=== PATIENT | male | born 1960 | race Caucasian/White ===

== ENCOUNTER 2018-02-05 12:44 | Observation (INO) | payer OTHER ==
--- NOTE | 2018-02-05 13:37 | CPEKG ---
Heart Rate: 68 RR Interval: 882 P-R Interval: 148 QRSD Interval: 98 QT Interval: 408 QTC Interval: 434 P [place]: 18 QRS [place]: 57 T Wave [place]: 53 EKG Severity - BORDERLINE ECG - EKG Impression: SINUS RHYTHM EKG Impression: BORDERLINE ST ELEVATION, ANTERIOR LEADS Electronically Signed By: Toña Montez 05-Feb-2018 19:58:42
[2018-02-05] MEDS ORDERED: NS 500 ML IV ONE (13:38)
[2018-02-05] MEDS ORDERED: ASPIRIN 81 MG CHEWABLE TAB PO ONE (13:38)
[2018-02-05 13:52] LABS: PLATELET COUNT 266 10^3/uL (150-400)
[2018-02-05 14:02] LABS: INR 0.92 (0.83-1.16); PROTIME(PATIENT) 12.6 SEC (12.0-15.0)
[2018-02-05 14:15] LABS: CREATINE KINASE 116 IU/L (0-224)
--- NOTE | 2018-02-05 14:33 | EDPHY ---
H & P Time Seen by Provider: 02/05/18 13:35 HPI/ROS: HPI Lightheaded, chest tightness. 57-year-old male by private vehicle with his . This patient reports that he was mountain biking this morning for about an hour and a half. While doing so he felt fine. He was driving home when he had an episode of what he describes as tightness left side and mid substernal in his chest. He describes this as a squeezing sensation with associated lightheadedness. He reports that he felt he was going to black out but did not. He was able to drive home. When he got home he discussed this with his and they decided to come to the emergency department. At this time of evaluation he denies any symptoms. No chest pain. No shortness of breath. No lightheadedness. He denies any other complaints. He states that he has had a sensation of palpitations associated with exercise and immediately after exercise in the past. He has been seen by a incident response lead for years ago and this was thought to perhaps be atrial fibrillation but was never diagnosed officially. He is not on any prescription medications other than Paxil. ROS: Constitutional: No fever, no chills. As above. Eyes: No discharge. No changes in vision. ENT: No sore throat. No nasal congestion or rhinorrhea. Respiratory: No cough. No shortness of breath. Cardiac: As above, no palpitations. Gastrointestinal: No abdominal pain, no vomiting, no diarrhea. Genitourinary: No hematuria. No dysuria or increased frequency with urination. Musculoskeletal: No back pain. No neck pain. No myalgias or arthralgias. Skin: No rashes. Neurological: No headache. No focal weakness or altered sensation. Past medical history: Depression. Social history: Nonsmoker. Here with his . No alcohol. Physical Exam: General Appearance: Alert, no distress. This patient is responding to questions appropriately and in full sentences. This patient appears well- hydrated and well-nourished. Eyes: Pupils equal and round no pallor or injection. No lid edema, erythema or injection. Respiratory: There are no retractions, lungs are clear to auscultation with good air movement bilaterally. Cardiovascular: Regular rate and rhythm. No murmur. Gastrointestinal: Abdomen is soft and nontender, no masses, bowel sounds normal. No focal tenderness at McBurney's point. No Sims sign. Neurological: Motor sensory function is grossly intact. Cranial nerves are normal. Gait is normal. Skin: Warm and dry, no rashes. Musculoskeletal: Neck is supple and nontender. Extremities are symmetrical. All joints range without pain or impingement. Psychiatric: No agitation. No depression. Database: EKG: EKG time is 1:35 p.m.; EKG shows a narrow complex normal sinus rhythm with a ventricular rate of 68. The CO, QRS, QT intervals are within normal limits. Tall peaked T-waves noted in V2 and V3. Borderline J-point elevation in V2 and V3. No reciprocal changes. Otherwise there are no ST-T wave changes indicative of ischemic or injury pattern. No evidence of right heart strain. Interpreted by me. Imaging: Chest x-ray AP portable: The cardiac mediastinal silhouette is normal. No evidence of infiltrate or pneumothorax. No acute cardiopulmonary disease process. Interpreted by me. Procedures: Emergency department course: IV was placed. He was placed on a manager cardiac. He was given 324 mg of chewed aspirin. EKG obtained and reviewed by myself. 2:50 p.m., patient re-evaluated. Resting comfortably at this time. Results of blood work discussed with him. Plan for admission reviewed. He endorses. 3:00 p.m., spoke with on-call hospitalist. Case discussed in detail. Dr. Kamilah Palmer accepts this patient for admission to telemetry observation. Patient admitted in stable condition. Differential Diagnosis: The differential diagnosis on this patient includes but is not limited to arrhythmia, acute coronary syndrome. Pulmonary embolism, aortic dissection, myocarditis, pericarditis unlikely. This represents a partial list of diagnoses considered. These considerations are based on history, physical exam , past history, reassessment and diagnostic testing. Smoking Status: Never smoked Constitutional: Initial Vital Signs Temperature (C) 36.9 C 02/05/18 12:53 Heart Rate 68 02/05/18 12:53 Respiratory Rate 16 02/05/18 12:53 Blood Pressure 108/66 02/05/18 12:53 O2 Sat (%) 97 02/05/18 12:53 O2 Delivery Mode Room Air Allergies/Adverse Reactions: No Known Allergies Allergy (Unverified 02/05/18 12:52) Home Medications: Medication Instructions Recorded Loratadine 02/05/18 Mucinex 02/05/18 Nasacort 02/05/18 Paxil 02/05/18 Medical Decision Making - Diagnostics Imaging Results: Imaging Impressions Chest X-Ray 02/05/18 13:38 Impression: No significant radiographic abnormality. Specifically, a source for chest pain is not identified. - Data Points Laboratory Results: Laboratory Results 02/05/18 13:41 02/05/18 13:41 02/05/18 02/05/18 02/05/18 13:41 13:41 13:41 WBC 14.44 10^3/uL H 10^3/uL (3.80-9.50) RBC 5.18 10^6/uL 10^6/uL (4.40-6.38) Hgb 16.0 g/dL g/dL (13.7-17.5) Hct 46.3 % % (40.0-51.0) MCV 89.4 fL fL (81.5-99.8) MCH 30.9 pg pg (27.9-34.1) MCHC 34.6 g/dL g/dL (32.4-36.7) RDW 13.1 % % (11.5-15.2) Plt Count 266 10^3/uL 10^3/uL (150-400) MPV 9.2 fL fL (8.7-11.7) Neut % (Auto) 81.2 % H % (39.3-74.2) Lymph % (Auto) 11.4 % L % (15.0-45.0) [place] % (Auto) 5.5 % % (4.5-13.0) Eos % (Auto) 0.9 % % (0.6-7.6) Baso % (Auto) 0.6 % % (0.3-1.7) Nucleat RBC Rel Count 0.0 % % (0.0-0.2) Absolute Neuts (auto) 11.72 10^3/uL H 10^3/uL (1.70-6.50) Absolute Lymphs (auto) 1.65 10^3/uL 10^3/uL (1.00-3.00) Absolute Monos (auto) 0.80 10^3/uL 10^3/uL (0.30-0.80) Absolute Eos (auto) 0.13 10^3/uL 10^3/uL (0.03-0.40) Absolute Basos (auto) 0.08 10^3/uL 10^3/uL (0.02-0.10) Absolute Nucleated RBC 0.00 10^3/uL 10^3/uL (0-0.01) Immature Gran % 0.4 % % (0.0-1.1) Immature Gran # 0.06 10^3/uL 10^3/uL (0.00-0.10) PT 12.6 SEC SEC (12.0-15.0) INR 0.92 (0.83-1.16) APTT 25.1 SEC SEC (23.0-38.0) D-Dimer 0.60 ug/mLFEU H ug/mLFEU (0.00-0.50) Sodium 141 mEq/L mEq/L (135-145) Potassium 4.4 mEq/L mEq/L (3.3-5.0) Chloride 106 mEq/L mEq/L (97-110) Carbon Dioxide 23 mEq/l mEq/l (22-31) Anion Gap 12 mEq/L mEq/L (8-16) BUN 19 mg/dL mg/dL (7-23) Creatinine 1.0 mg/dL mg/dL (0.7-1.3) Estimated GFR > 60 Glucose 106 mg/dL H mg/dL (70-100) Calcium 9.1 mg/dL mg/dL (8.5-10.4) Creatine Kinase 116 IU/L IU/L (0-224) CK-MB (CK-2) Fraction 1.27 ng/mL ng/mL (0.00-3.19) Troponin I < 0.012 ng/mL ng/mL (0.000-0.034) Medications Given: Discontinued Medications Aspirin (Aspirin) 324 mg PO EDNOW ONE Stop: 02/05/18 13:39 Last Admin: 02/05/18 14:01 Dose: 324 mg Sodium Chloride (Ns) 500 mls @ 1,000 mls/hr IV EDNOW ONE PRN Reason: Protocol Stop: 02/05/18 14:07 Last Admin: 02/05/18 14:01 Dose: 500 mls Departure - Departure Disposition: [facility] ([place], [place])s Inpatient Acute Clinical Impression: Near syncope, Chest discomfort Referrals: Garfein,Chris, DO [Primary Care Provider] - As per Instructions
[2018-02-05] MEDS ORDERED: ACETAMINOPHEN 325 MG TAB PO PRN (15:09)
[2018-02-05] MEDS ORDERED: ONDANSETRON DISINTEGRATING 4 MG TAB PO PRN (15:09)
[2018-02-05] MEDS ORDERED: ONDANSETRON 4 MG/2 ML VIAL IVP PRN (15:09)
[2018-02-05] MEDS ORDERED: D50W 25 GM/50 ML SYR IVP ONE (15:40)
--- NOTE | 2018-02-05 16:28 | PDGENHP ---
History and Physical - Chief Complaint chest tightness - History of Present Illness 57 yo active male with h/o allergies and anxiety presents to ED with an episode of chest tightness, which is now resolved. He did a mountain bike ride this morning near [facility] and had no chest pain or unexpected dyspnea during the ride. On his way home, he felt lightheaded. He drank some water. He then noticed some focal chest tightness in the left side of his chest without radiation. There was no associated nausea, diaphoresis or shortness of breath. He denies URI symptoms. No fevers or chills. No abdominal symptoms or changes in his bowel or bladder habits. He is a lifetime non-smoker. No h/o hypertension or hyperlipidemia. No family history of CAD. Overall, no cardiac risk factors. In the ED, he had peaked T waves on his EKG, but no acute ischemic changes. His initial troponin is negative. He is currently chest pain free and has been without symptoms since arrival to the ED. He is admitted to the PCU for further cardiac evaluation. History Information - Allergies/Home Medication List Allergies/Adverse Reactions: No Known Allergies Allergy (Verified 02/05/18 15:39) Home Medications: Loratadine [Claritin] 10 mg PO DAILY 02/05/18 [Last Taken 02/05/18] PARoxetine HCL [Paxil 20mg (*)] 20 mg PO DAILY 02/05/18 [Last Taken 02/05/18] Triamcinolone Acetonide [Nasacort] 10.8 ml NS DAILY PRN 02/05/18 [Last Taken Unknown] guaiFENesin [Mucinex 600 MG (*)] 600 mg PO BID 02/05/18 [Last Taken 02/05/18] I have personally reviewed and updated: family history, medical history, social history, surgical history - Past Medical History Additional medical history: allergies. 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 Review of Systems Review of Systems: ROS: 10pt was reviewed & negative except for what was stated in HPI & below Physical Exam Physical Exam: Temp Pulse Resp BP Pulse Ox 36.9 C 54 L 16 122/72 H 95 02/05/18 12:53 02/05/18 16:11 02/05/18 16:11 02/05/18 16:11 02/05/18 16:11 Constitutional: no apparent distress Eyes: PERRL Ears, Nose, Mouth, Throat: moist mucous membranes Cardiovascular: regular rate and rhythym, no murmur, rub, or gallop Respiratory: no respiratory distress, clear to auscultation Gastrointestinal: normoactive bowel sounds, soft, non-tender abdomen Skin: warm Musculoskeletal: full muscle strength Neurologic: AAOx3 Psychiatric: interacting appropriately Lab Data & Imaging Review 02/05/18 13:41 02/05/18 13:41 WBC 14.44 10^3/uL (3.80-9.50) H 02/05/18 13:41 RBC 5.18 10^6/uL (4.40-6.38) 02/05/18 13:41 Hgb 16.0 g/dL (13.7-17.5) 02/05/18 13:41 Hct 46.3 % (40.0-51.0) 02/05/18 13:41 MCV 89.4 fL (81.5-99.8) 02/05/18 13:41 MCH 30.9 pg (27.9-34.1) 02/05/18 13:41 MCHC 34.6 g/dL (32.4-36.7) 02/05/18 13:41 RDW 13.1 % (11.5-15.2) 02/05/18 13:41 Plt Count 266 10^3/uL (150-400) 02/05/18 13:41 MPV 9.2 fL (8.7-11.7) 02/05/18 13:41 Neut % (Auto) 81.2 % (39.3-74.2) H 02/05/18 13:41 Lymph % (Auto) 11.4 % (15.0-45.0) L 02/05/18 13:41 [place] % (Auto) 5.5 % (4.5-13.0) 02/05/18 13:41 Eos % (Auto) 0.9 % (0.6-7.6) 02/05/18 13:41 Baso % (Auto) 0.6 % (0.3-1.7) 02/05/18 13:41 Nucleat RBC Rel Count 0.0 % (0.0-0.2) 02/05/18 13:41 Absolute Neuts (auto) 11.72 10^3/uL (1.70-6.50) H 02/05/18 13:41 Absolute Lymphs (auto) 1.65 10^3/uL (1.00-3.00) 02/05/18 13:41 Absolute Monos (auto) 0.80 10^3/uL (0.30-0.80) 02/05/18 13:41 Absolute Eos (auto) 0.13 10^3/uL (0.03-0.40) 02/05/18 13:41 Absolute Basos (auto) 0.08 10^3/uL (0.02-0.10) 02/05/18 13:41 Absolute Nucleated RBC 0.00 10^3/uL (0-0.01) 02/05/18 13:41 Immature Gran % 0.4 % (0.0-1.1) 02/05/18 13:41 Immature Gran # 0.06 10^3/uL (0.00-0.10) 02/05/18 13:41 PT 12.6 SEC (12.0-15.0) 02/05/18 13:41 INR 0.92 (0.83-1.16) 02/05/18 13:41 APTT 25.1 SEC (23.0-38.0) 02/05/18 13:41 D-Dimer 0.60 ug/mLFEU (0.00-0.50) H 02/05/18 13:41 Sodium 141 mEq/L (135-145) 02/05/18 13:41 Potassium 4.4 mEq/L (3.3-5.0) 02/05/18 13:41 Chloride 106 mEq/L (97-110) 02/05/18 13:41 Carbon Dioxide 23 mEq/l (22-31) 02/05/18 13:41 Anion Gap 12 mEq/L (8-16) 02/05/18 13:41 BUN 19 mg/dL (7-23) 02/05/18 13:41 Creatinine 1.0 mg/dL (0.7-1.3) 02/05/18 13:41 Estimated GFR > 60 02/05/18 13:41 Glucose 106 mg/dL (70-100) H 02/05/18 13:41 Calcium 9.1 mg/dL (8.5-10.4) 02/05/18 13:41 Creatine Kinase 116 IU/L (0-224) 02/05/18 13:41 CK-MB (CK-2) Fraction 1.27 ng/mL (0.00-3.19) 02/05/18 13:41 Troponin I < 0.012 ng/mL (0.000-0.034) 02/05/18 13:41 Visualized and Interpreted Chest x-ray results: Yes Chest X-Ray results: no infiltrate Visualized and Interpreted EKG results: Yes EKG Interpretation: Positive for: normal sinsus rhythm EKG additional interpertation: peaked T waves Assessment & Plan Assessment: Chest pain - Heart score low risk. EKG non-ischemic, though will repeat with peaked T waves in anterior leads and J point elevation. Trop neg. Chest pain free. Recent LDL 70. -admit to tele -trend troponin -repeat EKG now -if trops neg and no recurrent symptoms, he is a candidate for outpt risk stratification given low risk Heart score of 2 Allergies - cont home meds Anxiety/Depression - cont home paxil Full code Dispo - obs
[2018-02-06] MEDS ORDERED: TRIAMCINOLONE ACETONIDE NS PRN (07:38)
[2018-02-06 07:48] VITALS: BP 118/70
[2018-02-06] MEDS ORDERED: FLUTICASONE NASAL 120 SPRAYS/16 GM MDI EACHNARE PRN (07:59)
[2018-02-06] MEDS ORDERED: guaiFENesin 600 MG TAB.ER PO SCH (09:00)
[2018-02-06] MEDS ORDERED: PARoxetine HCL 20 MG TAB PO SCH (09:00)
[2018-02-06] MEDS ORDERED: CETIRIZINE 10 MG TAB PO SCH (09:00)
[2018-02-06] MEDS ORDERED: NON-FORMULARY NEW DRUG (Loratadine [Claritin] 10 MG) PO SCH (09:00)
--- NOTE | 2018-02-06 11:56 | PDDCSUM ---
Discharge Summary Discharge Summary: DISCHARGE DIAGNOSES: -near syncope, resolved -chest discomfort, resolved -ruled out [place] H[facility]PITAL COURSE SUMMARY: This patient was driving home after a vigorous mountain bike ride when he developed near syncopal symptoms. He did not actually lose consciousness but as the symptoms persisted for quite some time he presented to the emergency room and it was while he was in the check an area at the ER that his lightheadedness actually resolved. At some point probably why he was still driving he had a short period of some vague discomfort in the left anterior chest. He is unable to describe exactly with this felt like but feels like it may potentially have been similar to some recurrent palpitations that he has had in the past. He has been asymptomatic since his arrival to the hospital 24 hr ago. There has been no discomfort in the legs, no swelling in the legs, no cough or shortness of breath, no fever symptom, no pleuritic discomfort of any kind, no nausea, no diaphoresis, either during his his onset of symptoms or during his hospital stay. The patient does have a history of recurrent episodes of palpitations that occur approximately 2 times per year and have been occurring for decades. These are typically out of the blue but may be brought on by exertion, have never caused him to be lightheaded or faint, and have never been documented on any type of EKG or monitor. He did wear a Holter monitor at 1 time for several days but did not have any episodes of symptoms nor any arrhythmia on the monitor. There is no history of any other cardiac, vascular, thromboembolic disease in the patient or in his family. In hospital patient rule out for myocardial infarction with 3-troponins and a normal EKG. He was in sinus rhythm on cardiac cath lab radiology technologist while he was here. There was no sign of hemodynamic instability, hypoxemia or dyspnea or other respiratory abnormality, and there has been no sign of heart failure. His examination has been normal. At this point he is felt to be at very low risk for any concerning cardiac events but it is felt that treadmill stress testing is appropriate. This is going to be scheduled in the outpatient setting over the next couple of days through [facility]. The patient is given information for setting that up and I did notify the PA here in the hospital from [facility] to get his name on the list for that evaluation. The patient understands that if he has ongoing recurrent symptoms he should have further evaluation until we are completely satisfied that there are no other concerning abnormalities or testing that should be considered. It should be noted that the patient did have an elevated D-dimer on blood testing here in the emergency room. At this point the patient has a very low clinical suspicion for thromboembolic disease, with no concerning symptoms or physical exam findings or test abnormalities to raise suspicion for that. Further assessment for thromboembolic disease is not pursued at this time. PENDING TEST RESULTS: Outpatient treadmill stress testing to be done in the next couple days MEDICATION CHANGES: None FOLLOW-UP PLAN: With his primary care physician in the next 2-3 weeks, otherwise as needed Greater than 35 minutes bedside and care coordination time today
--- NOTE | 2018-02-06 12:10 | ASDISCHSUM ---
Discharge Information Plan Status:Home with No Needs Medically Cleared to Leave:02/06/2018 Discharge Date:02/06/2018 CM D/C Disposition:Home, Routine, Self-Care ADT D/C Disposition:Home, Routine, Self-Care Projected Discharge Date:02/06/2018 Transportation at D/C:Family Discharge Delay Reason: Follow-Up Date:02/06/2018 Discharge Slot: Final Diagnosis: Placement Information Patient Contact Information Contact Name:EMMANUEL Relationship: Address:[address] Work Phone: City:[place] Alternate Phone: State/Zip Code:[place] [address] Email: Financial Information Financial Class:HMO and PPO Plans Primary Plan Desc:[id number] [address] [employer] Primary Plan Number:[id number] Secondary Plan Desc: Secondary Plan Number: Assessment Information LACE LACE Length of stay for Answers: Less than 1 day current admission Acuity / Level of Answers: No Care: Did the patient have an inpatient admission? Comorbidities - select Answers: Other Notes: chest pain, near syncop e all that apply # of Emergency department Answers: 1-2 visits in the last 6 months Social determinants Answers: Mental health diagnosis (anxiety, depression, pers onality disorders, etc.) Score: 5 Date Signed: 02/06/2018 12:09 PM Electronically Signed By:Sylvia Hernandez RN Case Management Discharge Plan Note Case Management Discharge Discharge Order Complete? Answers: Yes Patient to Obtain Answers: Independently Medications Transportation Arranged Answers: Family/Friends Discharge Comments Notes: 02/06/2018 Case Management Note Pt admitted for chest discomfort and near syncope. Pt will d/c independent with follow up as directed. Date Signed: 02/06/2018 12:08 PM Electronically Signed By:Sylvia Hernandez RN Intervention Information
== END 2018-02-06 12:33 | disposition home or self-care (01) ==
LOC: SUPCPDRO 12:44 → F2W 16:15
PROVIDERS: ADMIT Hospitalist; ATTEND Internal Medicine
DX: R55 Syncope and collapse (principal); R07.89 Other chest pain; E86.9 Volume depletion, unspecified; F32.9 Major depressive disorder, single episode, unspecified; F41.9 Anxiety disorder, unspecified; Z82.3 Family history of stroke
CPT/HCPCS: 71045; 93005; G0378